=== PATIENT | male | born 1945 | race Caucasian/White ===

== ENCOUNTER 2017-09-25 07:16 | Emergency (ER) | payer OTHER, MEDICARE ==
[~2017-09-25] VITALS: Ht 182.9 cm; Wt 80.0 kg
[2017-09-25] MEDS ORDERED: succinylcholine 20mg/ml inj IV ONE (07:24)
[2017-09-25] MEDS ORDERED: aspirin 300mg supp.rect RC ONE (07:30)
[2017-09-25] MEDS ORDERED: normal saline 1000ML IV soln IVB ONE (07:30)
[2017-09-25 07:31] VITALS: BP 98/66
[2017-09-25] MEDS ORDERED: midazolam 2 mg/2 ml injection ONE (08:04)
[2017-09-25] MEDS ORDERED: epiNEPHrine 0.1mg/ml 10ml syringe ONE (17:00)
[2017-09-25] MEDS ORDERED: atropine 0.1mg/ml 10ml syringe ONE (17:00)
[2017-09-25] MEDS ORDERED: sod chloride 0.9% 10ml flush syringe IV ONE (17:00)
[2017-09-25] MEDS ORDERED: etomidate 2mg/ml inj. ONE (17:00)
== END 2017-09-25 08:29 | disposition expired ==
LOC: ER 07:17
DX: I46.9 Cardiac arrest, cause unspecified (principal); Z72.0 Tobacco use
CPT/HCPCS: 82948; 92950; 93005; 94760; 99291; A4315; C1758; J0171; J0330; J0461; J3490; J7030; J7060; 94002; J2250